=== PATIENT | female | born 1960 | race Caucasian/White ===

== ENCOUNTER 2017-02-27 18:46 | Emergency (ER) | payer OTHER ==
[~2017-02-27] VITALS: Ht 165.1 cm; Wt 63.5 kg
[~2017-02-27 18:46] MED LIST: CITALOPRAM HBR40 MG PO; CLONAZEPAM0.5 M2 PO; OMEPRAZOLE40 M1 PO
--- NOTE | 2017-02-27 21:10 | ED SKIN/ALLERGY COMPLAINT ---
History of Present Illness General Chief Complaint: Suture Removal/Wound Recheck Stated Complaint: S/P SKIN BIOPSY, WOUND CHECK Source: patient Exam Limitations: no limitations Vital Signs & Intake/Output Vital Signs & Intake/Output Vital Signs Date Time Temp Pulse Resp B/P B/P Pulse O2 O2 Flow FiO2 Mean Ox Delivery Rate 02/27 2114 98.0 82 18 142/68 96 Room Air 02/27 2103 Room Air 02/27 1853 97.1 79 15 134/74 100 Room Air ED Intake and Output 02/28 0000 02/27 1200 Intake Total Output Total Balance Patient 140 lb Weight Weight Reported by Patient Measurement Method Allergies Coded Allergies: MDX - Miconazole (Intermediate, BURNING SENSATION 06/29/16) MDX - Nitrofurantoin (BURNING 06/29/16) Uncoded Allergies: "MOST ANTIBIOTICS" (Intermediate, BURNING SENSATION 06/29/16) Reconcile Medications Citalopram Hydrobromide (Citalopram HBr) 40 MG TABLET 1 TAB PO DAILY DEPRESSION (Reported) Clonazepam 0.5 MG TABLET 1 TAB PO TIDPRN ANXIETY (Reported) Omeprazole 40 MG CAPSULE. 1 CAP PO DAILY reflux Triage Note: PT TO ED FOR WOUND CHECK OF SKIN BIPOSY FROM PROCEDURE ON 02/18. PT STATING "IM JUST NERVOUS, I JUST WANT TO MAKE SURE IT DOESNT GET MY B JILLIAN INFECTED" WOUND APPEARS CLEAN AND DRY, NO DRAINAGE, PT DENIES FEVER. PT HAS SOME LOCAL SKIN IRRITATION AROUND WOUND PREVIOUS WOUND DRESSINGS. PT REPORTING "I'M ALLERGIC TO ALL ANTIBIOTICS SO I GET SCARED" Triage Nurses Notes Reviewed? yes HPI: This patient is a 56-year-old female who presented to the emergency department today for evaluation of questionable skin infection. The patient reported that on February 18 she had a skin biopsy done by Dr. Gonzalez and was told that she has squamous cell carcinoma on her right upper arm. The patient reported that she was told to put Vaseline on the area and keep it covered. Her skin is sensitive to the adhesive on the bandages. She also reported that she wants to make sure that the area is not infected. She denied any fevers or chills. No drainage of pus from the wound site. No excessive pain. No spreading of redness around the wound site. (ARETHA REYNOLDS,YINA) Past History Travel History Traveled to [place] past 21 day No Medical History Any Pertinent Medical History? see below for history Neurological: NONE EENT: NONE Cardiovascular: NONE Respiratory: NONE Gastrointestinal: GERD Hepatic: NONE Renal: NONE Musculoskeletal: NONE Psychiatric: anxiety Endocrine: NONE Blood Disorders: NONE Cancer(s): basal cell carcinoma History of CDIFF: No Surgical History Surgical History: cholecystectomy Psychosocial History Who do you live with Family Services at Home None What is your primary language Congolese Tobacco Use: Current Daily Use Daily Tobacco Use Amount/Type: => 5 Cigarettes daily ETOH Use: denies use Illicit Drug Use: denies illicit drug use Family History Hx Contributory? No (YINA CARIAS PA-C) Review of Systems Review of Systems Constitutional: Reports: no symptoms. EENTM: Reports: no symptoms. Respiratory: Reports: no symptoms. Cardiovascular: Reports: no symptoms. GI: Reports: no symptoms. Musculoskeletal: Reports: no symptoms. Skin: Reports: see HPI. Neurological/Psychological: Reports: no symptoms. All Other Systems: Reviewed and Negative (YINA CARIAS PA-C) Physical Exam Physical Exam General Appearance: well developed/nourished, no apparent distress, alert, awake Comments: Well-developed well-nourished person in no acute distress HEENT: Head normocephalic, moist mucous membranes Neck: Supple, no lymphadenopathy Back: Normal gait Respiratory: No respiratory distress. Speaking in full sentences Extremities: No edema, full range of motion Neuro: Alert and oriented x3 Psych: Mood affect normal, normal memory normal judgment. Skin: Warm and dry, no rash on exposed skin. Approximately 1.5 cm in diameter, round ulceration to the inside proximal right arm with no pus drainage or bleeding from the site. Minimal surrounding erythema with no surrounding edema. Nontender to palpation. (YINA CARIAS PA-C) Progress Differential Diagnosis: abscess/cellulitis, contact dermatitis, cellulitis Plan of Care: Orders Procedure Date/time Status EKG 02/27 2100 Active Departure Departure Disposition: HOME OR SELF CARE Condition: Stable Clinical Impression Primary Impression: Visit for wound check Referrals: NELIDA LUNA,ROXANA (PCP/Family) Additional Instructions: Please follow-up with your primary care physician. Keep the wound site clean and dry. Return for any worsening symptoms, excessive pain, pus drainage from the wound site, spreading of redness around the wound site, fevers, chills, or for any other concerns. Departure Forms: Customer Survey General Discharge Information (ARETHA REYNOLDS,YINA) PA/SECOND WORKER Co-Sign Statement Statement: ED Attending supervision documentation- [] I saw and evaluated the patient. I have also reviewed all the pertinent lab results and diagnostic results. I agree with the findings and the plan of care as documented in the PA's/SECOND WORKER's documentation. [X] I have reviewed the ED Record and agree with the PA's/SECOND WORKER's documentation. [] Additions or exceptions (if any) to the PAs/SECOND WORKER's note and plan are summarized below: [] (CJ ULNA,BARBARA)
[2017-02-27 21:14] VITALS: BP 142/68
== END 2017-02-27 21:15 ==
LOC: ERH 18:46
DX: Z48.01 Encounter for change or removal of surgical wound dressing (principal)